=== PATIENT | female | born 1990 | race Caucasian/White ===

== ENCOUNTER 2016-07-25 21:49 | Emergency (ER) | payer MEDICAID ==
[~2016-07-25] VITALS: Ht 165.1 cm; Wt 55.3 kg
[2016-07-25 22:36] VITALS: BP 112/61; PULSE 77; RESP 18; TEMP 98.4; O2SAT 98
--- NOTE | 2016-07-25 23:56 | NUR ---
Placed in room 03 . Placed on cardiac cath rn, blood pressure machine and pulse oximeter. To gown for exam. Side rails up. Report given to APRIL West.
--- NOTE | 2016-07-25 23:57 | NUR ---
Patient AAO x4, sitting in bed, c/o throat pain 10/10 x 1 day with cough, denies N/V/D, denies chest pain, no acute distress noted. Will continue to monitor.
--- NOTE | 2016-07-25 23:58 | NUR ---
ER at bedside examining patient.
[2016-07-26] MEDS ORDERED: AMOXICILLIN 500 MG CAPSULE PO ONE
[2016-07-26 00:15] VITALS: BP 110/65; PULSE 75; RESP 18; TEMP 98.4; O2SAT 98
--- NOTE | 2016-07-26 00:15 | NUR ---
Patient given written and verbal discharge instructions and verbalizes understanding. ER MD discussed with patient the results and treatment provided. Patient in stable condition. ID arm band removed. Rx of amoxicillin given. Patient educated on pain management and to follow up with PMD. Pain Scale 0/10 . Opportunity for questions provided and answered.
== END 2016-07-26 00:15 | disposition home or self-care (01) ==
LOC: SED 21:49
DX: J02.9 Acute pharyngitis, unspecified (principal)
CPT/HCPCS: 99283

== ENCOUNTER 2019-06-15 19:51 | Emergency (ER) | payer MEDICAID ==
[~2019-06-15] VITALS: Ht 165.1 cm; Wt 54.4 kg
[2019-06-15 19:55] VITALS: BP_SYST 121
--- NOTE | 2019-06-15 19:55 | NUR ---
Patient triaged and placed in waiting room. VSS and patient appears in no acute distress at this time. Accompanied by MOTHER, awaiting available bed, and MD notified of need for MSE.
--- NOTE | 2019-06-15 22:10 | NUR ---
DEPUTY NASH TALKING TO THE PT INSIDE THE TRIAGE ROOM.
--- NOTE | 2019-06-15 23:11 | NUR ---
Patient to ER bed 6 to gown for evaluation. Side rails up. Report given to Sanna CHEN.
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
[2019-06-15] MEDS ORDERED: KETOROLAC TROMETHAMINE 60 MG/2 ML VIAL IM ONE (23:45)
--- NOTE | 2019-06-16 00:11 | NUR ---
Pt off floor to radioliogy via gurney in stable condition.
--- NOTE | 2019-06-16 00:24 | NUR ---
Pt returned to unit via [place] in stable condition.
[2019-06-16 01:11] VITALS: BP_SYST 116
--- NOTE | 2019-06-16 01:11 | NUR ---
Patient given written and verbal discharge instructions and verbalizes understanding. ER MD Palm discussed with patient the results and treatment provided. Patient in stable condition. ID arm band removed. Rx of naprosyn given. Patient educated on pain management and to follow up with PMD. Pain Scale 1/10. Opportunity for questions provided and answered. Medication side effect fact sheet provided.
== END 2019-06-16 01:11 | disposition home or self-care (01) ==
LOC: SED 19:51
DX: S13.4XXA Sprain of ligaments of cervical spine, initial encounter (principal); Y04.2XXA Assault by strike against or bumped into by another person, initial encounter; Y93.89 Activity, other specified; Y92.89 Other specified places as the place of occurrence of the external cause; Y99.8 Other external cause status
CPT/HCPCS: 70450; 72125; 81025; 96372; 99284; J1885

== ENCOUNTER 2022-04-22 12:49 | Emergency (ER) | payer BC, MEDICAID ==
[~2022-04-22] VITALS: Ht 162.6 cm; Wt 61.2 kg
--- NOTE | 2022-04-22 13:02 | NUR ---
Patient to ER bed 2 to gown for evaluation. Side rails up. Report given to Suzi CHEN.
--- NOTE | 2022-04-22 13:05 | NUR ---
ER at bedside examining patient.
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
[2022-04-22] MEDS ORDERED: LIDOCAINE/EPI 1% 1:100000 20 ML VIAL INJ ONE (13:15)
[2022-04-22] MEDS ORDERED: BACITRACIN ZINC 15 GM TOPICAL OINTMENT TP ONE (14:45)
[2022-04-22] MEDS ORDERED: IBUP-1969 PO (14:46)
[2022-04-22] MEDS ORDERED: BACI15OI13 TP (14:46)
[2022-04-22 15:19] VITALS: BP_SYST 121
--- NOTE | 2022-04-22 15:19 | NUR ---
Patient given written and verbal discharge instructions and verbalizes understanding. ER MD discussed with patient the results and treatment provided. Patient in stable condition. ID arm band removed. Rx of BACITRACIN AND IBUPROFEN given. Patient educated on pain management and to follow up with PMD. Pain Scale 0/10. Opportunity for questions provided and answered. Medication side effect fact sheet provided.
== END 2022-04-22 15:19 | disposition home or self-care (01) ==
LOC: SED 12:49
DX: S51.812A Laceration without foreign body of left forearm, initial encounter (principal); Z79.899 Other long term (current) drug therapy; W27.5XXA Contact with paper-cutter, initial encounter; Y93.89 Activity, other specified; Y92.89 Other specified places as the place of occurrence of the external cause; Y99.8 Other external cause status
CPT/HCPCS: 99282

== ENCOUNTER 2022-05-02 15:33 | Emergency (ER) | payer BC ==
[~2022-05-02] VITALS: Ht 152.4 cm; Wt 64.4 kg
[~2022-05-02 15:33] MED LIST: BACI15OI13 TP; IBUP-1969 PO
[2022-05-02 16:13] VITALS: BP_SYST 111
--- NOTE | 2022-05-02 16:52 | NUR ---
Patient to ER bed H1 to gown for evaluation. Side rails up.
--- NOTE | 2022-05-02 17:20 | NUR ---
ER DR. HUMPHREYS REMOVING SUTURES, PT TOLERATING WELL
[2022-05-02 17:40] VITALS: BP_SYST 111
--- NOTE | 2022-05-02 17:40 | NUR ---
Patient given written and verbal discharge instructions and verbalizes understanding. ER MD discussed with patient the results and treatment provided. Patient in stable condition. ID arm band removed. NO Rx given. Patient educated on pain management and to follow up with PMD. Pain Scale 0/10. Opportunity for questions provided and answered. Medication side effect fact sheet provided.
[2022-05-02] MEDS ORDERED: BACITRACIN 1 GM OINT TP ONE (17:45)
== END 2022-05-02 17:40 | disposition home or self-care (01) ==
LOC: SED 15:33
DX: Z48.02 Encounter for removal of sutures (principal)
CPT/HCPCS: 99282

== ENCOUNTER 2022-07-05 08:11 | Emergency (ER) | payer BC ==
[~2022-07-05] VITALS: Ht 162.6 cm; Wt 65.8 kg
[2022-07-05 08:11] VITALS: BP_SYST 104
--- NOTE | 2022-07-05 08:11 | NUR ---
BROUGHT BACK TO BED #6 AND TRIAGED. REPORT GIVEN TO JEANNA
--- NOTE | 2022-07-05 08:35 | NUR ---
DR ATKINSON AT BEDSIDE FOR EXAM
--- NOTE | 2022-07-05 08:39 | NUR ---
PT STATES 5 DAYS WITH DYSURIA AND HEMATURIA. PT DENIES ABDOMINAL PAIN, NO N/V/D. SKIN W/D/I. DENIES FEVERS/CHILLS.
[2022-07-05 08:51] LABS: BILIRUBIN,URINE NEGATIVE (NEGATIVE); BLOOD, URINE 3+ (NEGATIVE); COLOR,URINE YELLOW (YELLOW); GLUCOSE,URINE NEGATIVE (NEGATIVE); KETONES,URINE NEGATIVE (NEGATIVE); LEUKOCYTE ESTERASE ,URINE 2+ (NEGATIVE); NITRITE, URINE POSITIVE (NEGATIVE); PROTEIN URINE 1+ (NEGATIVE); UROBILINOGEN,URINE 0.2 (0.2-1.0)
[2022-07-05] MEDS ORDERED: NITR-85 PO (08:51)
[2022-07-05] MEDS ORDERED: PHEN-726 PO (08:51)
[2022-07-05 08:53] LABS: CLARITY/URINE TURBID (CLEAR)
[2022-07-05 09:15] LABS: BACTERIA,URINE MANY /HPF (None Seen); WBC,URINE 80-100 /HPF (0-3)
[2022-07-05] MEDS ORDERED: PHENAZOPYRIDINE HCL 100 MG TABLET PO ONE (09:15)
[2022-07-05] MEDS ORDERED: NITROFURANTOIN MONOHYD/M-CRYST 100 MG CAPSULE (MacroBID) PO ONE (09:15)
--- NOTE | 2022-07-05 09:51 | NUR ---
MEDICTAED ORDERED, WILL MONITOR FOR ANY ADVSER SIDE EFFCTS
[2022-07-05 10:15] VITALS: BP_SYST 116
--- NOTE | 2022-07-05 10:15 | NUR ---
Patient given written and verbal discharge instructions and verbalizes understanding. ER MD discussed with patient the results and treatment provided. Patient in stable condition. ID arm band removed. Rx of MACROBID, PYRIDIUM given. Patient educated on pain management and to follow up with PMD. Pain Scale . Opportunity for questions provided and answered. Medication side effect fact sheet provided.
== END 2022-07-05 10:15 | disposition home or self-care (01) ==
LOC: SED 08:11
DX: N30.00 Acute cystitis without hematuria (principal); R31.9 Hematuria, unspecified; R30.0 Dysuria; Z79.899 Other long term (current) drug therapy
CPT/HCPCS: 81000; 81025; 87086; 99283

== ENCOUNTER 2023-05-06 13:54 | Emergency (ER) | payer BC ==
[~2023-05-06] VITALS: Ht 152.4 cm; Wt 68.0 kg
[~2023-05-06 13:54] MED LIST changes: +NITR-85 PO; +PHEN-726 PO
[2023-05-06 14:04] VITALS: BP_SYST 120; PULSE 85; RESP 18; TEMP 98.3; O2SAT 98
[2023-05-06 14:46] LABS: BILIRUBIN,URINE NEGATIVE (NEGATIVE); BLOOD, URINE NEGATIVE (NEGATIVE); CLARITY/URINE CLEAR (CLEAR); COLOR,URINE YELLOW (YELLOW); GLUCOSE,URINE NEGATIVE (NEGATIVE); KETONES,URINE NEGATIVE (NEGATIVE); LEUKOCYTE ESTERASE ,URINE NEGATIVE (NEGATIVE); NITRITE, URINE NEGATIVE (NEGATIVE); PH,URINE 6.5 (5.0-8.0); PROTEIN URINE NEGATIVE (NEGATIVE); UROBILINOGEN,URINE 0.2 (0.2-1.0)
[2023-05-06 15:34] LABS: CALCIUM 9.6 mg/dL (8.4-11.0); CREATININE 0.43 mg/dL (0.55-1.30); POTASSIUM 3.9 mmol/L (3.5-5.1)
[2023-05-06 15:43] LABS: HEMATOCRIT 40.1 % (36-48); HEMOGLOBIN 13.5 g/dL (12.0-16.0); MEAN CORPUSCULAR HEMOGLOBIN 31 pg (27-31); MEAN CORPUSCULAR HGB CONC 34 % (32-36); MEAN CORPUSCULAR VOLUME 92 fL (79.0-98.0); NEUTROPHILS % (AUTO) 76.9 % (40.0-70.0); PLATELET COUNT (AUTO) 262 K/uL (130-430); RED BLOOD CELL COUNT(AUTO) 4.37 MIL/uL (4.2-6.2); WHITE BLOOD COUNT (AUTO) 11.6 K/uL (4.8-10.8)
[2023-05-06 15:44] LABS: BASOPHILS % (AUTO) 0.2 % (0.0-2.0); EOSINOPHILS # (AUTO) 0.1 K/uL (0.0-0.4); EOSINOPHILS % (AUTO) 0.7 % (0.0-4.0); LYMPHOCYTES % (AUTO) 17.7 % (20.5-51.5); MONOCYTES # (AUTO) 0.5 K/uL (0.0-1.0); MONOCYTES % (AUTO) 4.5 % (1.7-9.3); NEUTROPHILS # (AUTO) 8.9 K/uL (1.8-7.7)
[2023-05-06 16:00] LABS: ALBUMIN 3.6 g/dL (3.4-4.8); BILIRUBIN,DIRECT 0.1 mg/dL (0.0-0.3); TOTAL BILIRUBIN 0.2 mg/dL (0.0-1.0); TOTAL PROTEIN, SERUM 7.5 g/dL (6.4-8.3)
[2023-05-06 17:23] VITALS: BP_SYST 120; PULSE 85; RESP 18; TEMP 98.3; O2SAT 98
== END 2023-05-06 17:23 | disposition home or self-care (01) ==
LOC: SED 13:54
DX: O26.891 Other specified pregnancy related conditions, first trimester (principal); Z3A.01 Less than 8 weeks gestation of pregnancy; Z79.899 Other long term (current) drug therapy
CPT/HCPCS: 36415; 76802; 80048; 80076; 81001; 81003; 84702; 85025; 99284